=== PATIENT | male | born 1995 | race Two or more races ===

== ENCOUNTER 2017-05-24 19:48 | Emergency (ER) | payer BC, OTHER ==
[~2017-05-24] VITALS: Ht 182.9 cm; Wt 113.4 kg
[2017-05-24 19:57] VITALS: BP 122/75
== END 2017-05-25 00:31 | disposition home or self-care (01) ==
LOC: ER 19:59
DX: F41.9 Anxiety disorder, unspecified (principal); F20.9 Schizophrenia, unspecified

== ENCOUNTER 2018-02-18 17:09 | Emergency (ER) | payer BC, OTHER ==
[~2018-02-18] VITALS: Ht 180.3 cm; Wt 113.4 kg
[2018-02-18 18:06] LABS: Basophils # (auto) 0 uL; Basophils % (auto) 0.3 % (0.0-2.0); Eosinophils # (auto) 0.2 uL; Eosinophils % (auto) 1.3 % (0.0-7.0); Hematocrit 43.4 % (41.0-53.0); Hemoglobin 14.3 g/dL (13.5-17.5); Lymphocytes # (auto) 2.7 uL; Lymphocytes % (auto) 18.5 % (10.0-50.0); Mean Corpuscular Hemoglobin 29.8 pg (28.0-32.0); Mean Corpuscular Volume 90.3 fL (80.0-100.0); Monocytes # (auto) 0.9 uL; Monocytes % (auto) 6.4 % (0.0-12.0); Neutrophils # (auto) 10.7 uL; Neutrophils % (auto) 73.5 % (37.0-80.0); Platelet Count (auto) 326 10^3/uL (140-450); Red Cell Distribution Width 13.6 % (11.8-14.3); White Blood Cell 14.6 10^3/uL (4.4-10.8)
[2018-02-18 18:25] LABS: Anion Gap 9 (5-15); BUN/Creatinine Ratio 13.6; Blood Alcohol < 3.0 mg/dL (0-5); Blood Urea Nitrogen 11 mg/dL (7-18); Calcium 8.7 mg/dL (8.5-10.1); Carbon Dioxide 25 mmol/L (21-32); Chloride 106 mmol/L (98-107); GFR African American 156 mL/min; GFR Non-African American 129 mL/min; Glucose 130 mg/dL (74-106); Potassium 3.8 mmol/L (3.5-5.1); Sodium 140 mmol/L (136-145)
[2018-02-18 20:46] LABS: Alcohol, Urine < 3.0 mg/dL (0-5); Amphetamine Screen, Urine NEGATIVE (NEGATIVE); Barbiturate Scree,Urine NEGATIVE (NEGATIVE); Benzodiazephine Screen, Urine NEGATIVE (NEGATIVE); Cannabinoid Screen, Urine NEGATIVE (NEGATIVE); Cocaine Screen, Urine NEGATIVE (NEGATIVE); Opiate Scree,Urine NEGATIVE (NEGATIVE); Phencyclidine Screen, Urine NEGATIVE (NEGATIVE)
[2018-02-18 22:07] VITALS: BP 143/67
== END 2018-02-19 00:13 | disposition home or self-care (01) ==
LOC: EDBD 17:09 → ER 17:12
DX: F20.9 Schizophrenia, unspecified (principal); F32.9 Major depressive disorder, single episode, unspecified; F12.10 Cannabis abuse, uncomplicated; F15.10 Other stimulant abuse, uncomplicated
CPT/HCPCS: 36415; 80048; 80307; 80320; 85025

== ENCOUNTER 2018-08-02 22:23 | Emergency (ER) | payer OTHER ==
[~2018-08-02] VITALS: Ht 182.9 cm; Wt 99.8 kg
[2018-08-02 22:25] VITALS: BP 144/88
[2018-08-02] MEDS: cefTRIAXone SOD 1,000 MG VL ONE (22:52)
[2018-08-02] MEDS: HYDROcodone-ACET 5/325MG TAB PO ONE (22:52)
[2018-08-02] MEDS: TETANUS-DIPTH-ACEL PERTUSSIS 0.5ML SYRG IM ONE (23:00)
[2018-08-02] MEDS: cefTRIAXone SOD 1,000 MG VL IM ONE (23:30)
== END 2018-08-03 00:29 | disposition home or self-care (01) ==
LOC: EDBD 22:23 → ER 22:23
DX: S01.01XA Laceration without foreign body of scalp, initial encounter (principal); S09.8XXA Other specified injuries of head, initial encounter; F17.210 Nicotine dependence, cigarettes, uncomplicated; F12.10 Cannabis abuse, uncomplicated; F15.10 Other stimulant abuse, uncomplicated; E07.9 Disorder of thyroid, unspecified; Y04.2XXA Assault by strike against or bumped into by another person, initial encounter; Y93.89 Activity, other specified; Y92.89 Other specified places as the place of occurrence of the external cause; Y99.8 Other external cause status
CPT/HCPCS: 12004; 70450; 90471; 90715; 96372; 99284; J0696